=== PATIENT | male | born 1985 | race Caucasian/White ===

== ENCOUNTER → 2024-11-06 16:16 | Outpatient (REF) | payer OTHER, SELFPAY | LOC: RAD 16:16 | PROVIDERS: ATTENDING PHYSICIAN Internal Medicine Rheumatology | DX: L40.50 Arthropathic psoriasis, unspecified (principal); M25.562 Pain in left knee; M79.672 Pain in left foot | CPT/HCPCS: 73560; 73565; 73630 ==

== ENCOUNTER 2025-07-02 21:34 | Emergency (ER) | payer OTHER, SELFPAY ==
[2025-07-02 21:41] VITALS: BP 124/73
--- NOTE | 2025-07-02 22:21 | ED.GENMED ---
History of Present Illness
General
Chief Complaint: Allergic Reaction
Time Seen by Provider: 07/02/25 22:10
History of Present Illness
History of Present Illness:
39-year-old male with history of rheumatoid arthritis presents to the emergency department for evaluation of fever that began today. He notes that nearly 1 month ago he was started on sulfasalazine by his oxidation operator for RA, had taken this for
just over 2 weeks when he developed fevers, was advised to stop the drug after 6 days of fever and the fever resolved within 48 hours. He felt well all week and restarted the sulfasalazine the day and within a few hours developed fever again. He
reports headache but no other symptoms. Denies coughing, sore throat, nausea, or vomiting.
Review of Systems
Review of Systems
Allergies reviewed?: Yes
All Other Systems: ROS reviewed and negative except as documented in HPI and ROS
Phy Exam
Physical Exam
Physical Exam:
GEN: Well appearing, NAD, WDWN
HEENT: Oral mucosa moist, no scleral icterus, TMs clear bilaterally with no erythema, oropharynx clear with no erythema
Cardiac: Mildly tachycardic, regular
Lung: No respiratory distress, no tachypnea, lungs clear to auscultation bilaterally
MSK: No gross deformity or injuries
Skin: Good color, no pallor or jaundice, no rashes
Neuro: AO x3, moves all extremities freely
Psych: Calm, cooperative
Course
Orders/Labs/Results
Orders:
Orders
07/02/25 22:54
COVID-19 Antigen Urgent
Source: Nasal Swab
Complete Blood Count/With Diff Urgent
Comprehensive Metabolic Panel Urgent
Influenza A+B Rapid Molecular Urgent
LOR Source: Nasal Swab
Specimen Description:
Acetaminophen [Tylenol] 1,000 mg PO NOW STA
07/02/25 23:13
Urinalysis Reflex To Culture Urgent
Date Specimen was Collected: 07/02/25
Time Specimen was Collected: 22:55
Urine Microscopic Reflex Cult Urgent
Abnormal Lab Results
07/02/25 07/02/25
22:54 23:13
WBC 18.2 H 10^3/uL
(4.8-10.8)
Hct 37.9 L %
(39.0-52.0)
Plt Count 484 H 10^3/uL
(130-400)
Abs Immat Gran (auto) 0.1 H 10^3/uL
(0-0.05)
Absolute Neuts (auto) 15.2 H 10^3/uL
(1.4-6.5)
Absolute Monos (auto) 1.3 H 10^3/uL
(0.1-0.6)
Immature Gran % 0.7 H %
(0-0.5)
Neutrophils % 83.2 H %
(42.2-75.2)
Lymphocytes % 8.5 L %
(20.5-51.1)
Sodium 133 L mmol/L
(135-145)
Glucose 125 H mg/dl
(70-99)
Urine Bacteria (Reflex) Few A
(Negative)
Urine Albumin (Reflex) 1+ A
(Neg - Trace)
07/02/25 22:54
07/02/25 22:54
Vital Signs
Initial and Last Documented VS:
Initial Vital Signs
Temp Pulse Resp BP Pulse Ox
102.4 F H 110 18 124/73 97
07/02/25 21:41 07/02/25 21:41 07/02/25 21:41 07/02/25 21:41 07/02/25 21:41
Last Documented Vital Signs
Temp Pulse Resp BP Pulse Ox
101.8 F H 96 16 118/60 96
07/03/25 00:07 07/03/25 00:07 07/03/25 00:07 07/03/25 00:07 07/03/25 00:07
MDM/Problems Addressed
MDM/Problems Addressed:
High degree of suspicion that this represents an acute drug fever given the temporal nature to the patient's fever and sulfasalazine use. Lab workup reveals leukocytosis which is most likely due to his current course of steroids. Otherwise no
clear etiology for fever is found. Advise discontinuation of sulfasalazine and follow-up with rheumatology for alternative therapy. Discussed supportive care for fever and avoidance of NSAIDs given current use of steroids
*Pulse Oximetry
SaO2: 97
Oxygen Mode of Delivery: Room air
Patient hypoxic: no
*Critical Care Note
Total Time (30-74mins, 75-104mins- exclusive of procedures): Not Applicable
ED Attending Note
-
Portions of this chart may have been created with voice recognition software.� Occasional wrong word or��sound alike� substitutions may have occurred due to the inherent limitations of voice recognition software.
Discharge Plan
Departure
Patient Disposition: Home (Routine Discharge)
Date of Disposition: 07/02/25
Time of Disposition: 23:50
Patient with high blood pressure during this ER visit?: No
Discharge Problem:
Drug-induced fever
Instructions: Fever in adults (DC)
Referrals:
Kaelyn Gamble CRNP [Family Provider, Internal Medicine]
Activity Restrictions/Additional Instructions:
Stop the sulfasalazine
Contact your oxidation operator Saturday
Return if fever lasts >5days
Interventions
Interventions:
*Risk Screen - Suicide Last Done: 07/02/25 21:41
*General Assessment Last Done: 07/02/25 21:41
*Neglect/Abuse Screening Last Done: 07/02/25 23:00
*ED- Fall Risk Assessment Last Done: 07/02/25 21:41
*ED COVID-19 Vaccine History Last Done: 07/02/25 21:41
*ED Influenza Vaccine History Last Done: 07/02/25 21:41
*Nursing Disposition Last Done: 07/03/25 00:07
ED- Cardiac Assessment Last Done: 07/02/25 23:00
ED- Pulmonary Assessment Last Done: 07/02/25 23:00
ED-Skin Assessment Last Done: 07/02/25 23:00
Discharge Date and Time
Discharge Date/Time: 07/03/25 00:08
Print Language: ARMENIAN
[2025-07-02 22:59] VITALS: BMI 24.3
[2025-07-02] MEDS: TYLENOL 1000 MG PO (22:59)
[2025-07-02 23:00] VITALS: BP 121/63
[2025-07-02 23:05] LABS: Hematocrit 37.9 % (39.0-52.0); Hemoglobin 13.6 g/dL (13.0-18.0); Mean Corp Hgb Conc. 35.9 g/dL (33.0-37.0); Mean Corpuscular Volume 80.6 fL (80.0-94.0); Nucleated Red Blood Cells % 0 % (-); Platelet Count 484 10^3/uL (130-400); Red Cell Dist. Width 12.6 % (11.5-14.5)
[2025-07-02 23:14] LABS: ALT (SGPT) 39 U/L (0-50); AST (SGOT) 26 U/L (17-59); Albumin 4.6 g/dl (3.5-5.0); Alkaline Phosphatase 55 U/L (38-126); Blood Urea Nitrogen 18 mg/dl (9-20); Calcium 9.6 mg/dl (8.4-10.2); Carbon Dioxide 28 mmol/L (22-30); Chloride 98 mmol/L (98-107); Estimated Creatinine Clearance 101 ml/min; Glucose 125 mg/dl (70-99); Potassium 4.1 mmol/L (3.5-5.1); Sodium 133 mmol/L (135-145); Total Protein 7.8 g/dl (6.3-8.2); eGFR > 60.00
[2025-07-02 23:18] LABS: Urine Character Clear (Clear)
[2025-07-02 23:23] LABS: COVID-19 Antigen Negative (Negative)
[2025-07-02 23:25] LABS: Urine Red Blood Cell 0-2 /HPF (0-2); Urine Squamous Cell 0-2 /LPF (Few); Urine White Cell 0-2 /HPF (0-5)
[2025-07-03 00:07] VITALS: BP 118/60
== END 2025-07-03 00:08 | disposition home or self-care (01) ==
LOC: EMR 21:34
PROVIDERS: Physician Assistant; EMERGENCY PHYSICIAN Emergency Medicine; FAMILY PHYSICIAN Nurse Practitioner Family
DX: R50.2 Drug induced fever (principal); T37.0X5A Adverse effect of sulfonamides, initial encounter; D72.829 Elevated white blood cell count, unspecified; M06.9 Rheumatoid arthritis, unspecified
CPT/HCPCS: 99283; 80053; 81003; 81015; 85025; 87502; 87811